=== PATIENT | female | born 1950 | race Caucasian/White ===

== ENCOUNTER 2018-10-12 05:58 | Inpatient (IN) | payer OTHER ==
[~2018-10-12] VITALS: Ht 167.6 cm; Wt 116.0 kg
[~2018-10-12 05:58] MED LIST: ALLO100 PO; ALLO300 PO; AMIO200 PO; ANTI ANXIETY MED; ARTIFICIAL TEAR15 ML RIGHTEYE; ATEN50; Augmentin 875-1 EACH PO; BISO5 PO; CLON.5; ELIQUIS5 MG PO; ERGO50000 PO; FENO54 PO; FLEC50 PO; FURO40; FURO40 PO; GABA600 PO; GABA800 PO; HYDACE5 PO; Keflex500 MG PO; LEVO750 PO; LEVSOD100 PO; LEVSOD125; LEVSOD25; LISI5 PO; LOSHYD; Lacri-Lube S.O3.5 GM RIGHTEYE; MAGOXI400 PO; META800 PO; METF500 PO; NAPR550 PO; NITR.4SL SL; POTA10T; Prednisone50 MG PO; SPIR50 PO; SPIRONOLACTONE; TRAM50 PO; TRIAOI; VALACYCLOVIR1000 MG PO; WARF4 PO; WARF5 PO; WARF7.5 PO; lisinopril
[2018-10-12 06:32] LABS: BASOPHILS ABSOLUTE AUTO 0.05 K/mm3 (0.00-0.23); BASOPHILS PERCENT AUTO 1 % (0-2); EOSINOPHILS ABSOLUTE AUTO 0.04 K/mm3 (0.00-0.68); EOSINOPHILS PERCENT AUTO 1 % (0-6); Hematocrit 40.5 % (33.0-51.0); Hemoglobin 14.4 g/dL (11.5-16.0); IMMATURE GRAN ABSOLUTE AUTO 0.03 K/mm3 (0.00-0.10); IMMATURE GRAN PERCENT AUTO 1 % (0-1); LYMPHOCYTES ABSOLUTE AUTO 1.06 K/mm3 (0.84-5.20); LYMPHOCYTES PERCENT AUTO 16 % (21-46); MONOCYTES ABSOLUTE AUTO 0.56 K/mm3 (0.16-1.47); MONOCYTES PERCENT AUTO 9 % (4-13); Mean Corpuscular HGB 33.6 pg (26.0-34.0); Mean Corpuscular HGB Conc 35.6 g/dL (31.5-36.5); Mean Corpuscular Volume 94 fL (80-100); Mean Platelet Volume 12.4 fL (9.1-12.4); NEUTROPHILS ABSOLUTE AUTO 4.71 K/mm3 (1.96-9.15); NEUTROPHILS PERCENT AUTO 73 % (41-73); Platelet Count 120 K/mm3 (150-400); RDW Coefficient Variation 11.9 % (11.7-14.2); RDW Standard Deviation 41.6 fL (35.1-46.3); Red Blood Cell Count 4.29 M/mm3 (3.80-5.20); White Blood Cell Count 6.45 K/mm3 (4.00-11.30)
[2018-10-12 06:46] LABS: Alanine Aminotransfer (ALT/SGP 37 U/L (12-78); Albumin/Globulin Ratio 1.2 (0.8-1.8); Alk Phos 83 U/L (50-136); Anion Gap 12 mmol/L (6-16); Aspartate Aminotrans (AST/SGOT 26 U/L (12-37); Bilirubin, Total 0.7 mg/dL (0.1-1.0); Blood Urea Nitrogen 10 mg/dL (8-24); Bun/Creatinine Ratio 14.2 (12.0-20.0); CO2, Blood 21 mmol/L (21-32); Chloride, Blood 104 mmol/L (98-108); Globulin, Blood 3.3 g/dL (2.2-4.0); Glomerular Filtration Rate >60 (60-); Glucose, Blood 235 mg/dL (70-99); Potassium, Blood 3.7 mmol/L (3.5-5.5); Sodium, Blood 137 mmol/L (136-145); Total Protein, Blood 7.3 g/dL (6.4-8.2); Troponin I <0.015 ng/mL (0.000-0.040)
[2018-10-12 06:53] LABS: Influenza A Positive (NEGATIVE); Influenza B Negative (NEGATIVE)
[2018-10-12] MEDS ORDERED: Bisoprolol Fumar5 MG PO (11:05)
--- NOTE | 2018-10-12 18:22 | NUR ---
SHIFT SUMMARY 1019 PT RECEIVED FROM ER. ORIENTED TO ROOM, MONITOR ON, HEART RHYTHM SHOWING AFIB RATE 120s-150s. ON CARDIZEM GTT AT 20 MG/HR. AT 1040 PT NOTED TO BE IN NSR RATE 70s, CARDIZEM GTT TITRATED TO OFF OVER A COUPLE HOURS. HEART RATE REMAINS IN THE 60s-70s NSR. PT STATES SHE FEELS BETTER AFTER CONVERSION. PT ALERT AND ORIENTED X3. C/O 11/21 HEADACHE, MEDICATED WITH PRN TYLENOL. LUNG SOUNDS CLEAR, DIMINISHED BASES. AMBULATING WITH STANDBY ASSIST TO TOILET WITH NO PROBLEMS. WILL CONTINUE TO MONITOR.
[2018-10-13 04:10] LABS: Hematocrit 38.3 % (33.0-51.0); Hemoglobin 13.2 g/dL (11.5-16.0); Mean Corpuscular HGB 33.3 pg (26.0-34.0); Mean Corpuscular HGB Conc 34.5 g/dL (31.5-36.5); Mean Platelet Volume 12.6 fL (9.1-12.4); Platelet Count 107 K/mm3 (150-400); RDW Coefficient Variation 12.1 % (11.7-14.2); RDW Standard Deviation 43.5 fL (35.1-46.3); Red Blood Cell Count 3.96 M/mm3 (3.80-5.20); White Blood Cell Count 3.85 K/mm3 (4.00-11.30)
[2018-10-13 04:20] LABS: Mean Corpuscular Volume 97 fL (80-100)
[2018-10-13 04:38] LABS: Anion Gap 7 mmol/L (6-16); Blood Urea Nitrogen 12 mg/dL (8-24); Bun/Creatinine Ratio 14.8 (12.0-20.0); CO2, Blood 26 mmol/L (21-32); Calcium, Blood 8.3 mg/dL (8.5-10.1); Chloride, Blood 106 mmol/L (98-108); Creatinine, Blood 0.81 mg/dL (0.40-1.00); Glomerular Filtration Rate >60 (60-); Glucose, Blood 175 mg/dL (70-99); Potassium, Blood 3.4 mmol/L (3.5-5.5); Sodium, Blood 139 mmol/L (136-145)
--- NOTE | 2018-10-13 07:34 | NUR ---
[id number]: MONITOR SR-SP. VSS. OOB W/ STANDBY ASSISST, NO DIZZINESS, GAIT STEADY. TYLENOL 650MG GIVEN FOR C/O HEADACHE, SUBTOTAL RELIEF. INTERMITTENT COUGH W/OUT PRODUCTION, INITIALLY DENIES DISCOMFORT, THEN C/O DEEP CHEST ACHING. TESSILON 200 MG GIVEN, COUGH SUPPRESSED SUBTOTAL. USING HOME CPAP INDEPENDENTLY W/ASLEEP. QT/QTc MORE PROLONGED IN AM, REPORTED TO DR CENTENO, 12 LEAD EKG OBTAINED.
--- NOTE | 2018-10-13 08:00 | NUR ---
pt laying in bed awake a/ox3, pleasant and cooperative with care, verbalizes a lot of stress at home, speaking about marital problems, follows commands well, denies pain, lungs are clear in upper feilds, course in bases, resp even and unlabored, has harsh cough, uses cpap when sleeping, takes po meds without diff, hrr, monitor in place running sr per monitor, see strip, no edema noted, ppp+2, cap refill <3sec, vs stable, afebrile, iv sites are clear and patent, btx4, abd flat soft nontender, voids without diff, skin c/w/d, maew, lynsey, call light in reach.
[2018-10-13 09:52] LABS: BASOPHILS PERCENT MAN 0 % (0-2); EOSINOPHILS PERCENT MAN 0 % (0-6); LYMPHOCYTES ABSOLUTE MAN 1.61 K/mm3 (0.84-5.20); LYMPHOCYTES PERCENT MAN 42 % (21-46); MONOCYTES ABSOLUTE MAN 0.11 K/mm3 (0.16-1.47); MONOCYTES PERCENT MAN 3 % (4-13); NEUTROPHILS ABSOLUTE MAN 2.11 K/mm3 (1.96-9.15); SEG NEUTROPHILS PERCENT MAN 55 % (41-73); TOTAL CELLS COUNTED 100
[2018-10-13] MEDS ORDERED: METO25 PO (12:43)
[2018-10-13] MEDS ORDERED: Tessalon200 MG PO (12:44)
[2018-10-13] MEDS ORDERED: OSEL75CA PO (12:44)
[2018-10-13] MEDS ORDERED: METF500C PO (12:45)
--- NOTE | 2018-10-13 13:09 | NUR ---
PT HAS BEEN DISCHARGED TO HOME, WILL FOLLOW UP WITH HER SALES OPERATIONS DIRECTOR IN [place], SHE VERBALIZES UNDERSTANDING OF HER INSTRUCIONTS, IV'S X2 REMOVED INTACT, NEW MEDICATIONS CALLED INTO [facility] PER HER INSTRUCTIONS. SHE IS GETTING HERSELF DRESSED AND WILL CALL WHEN READY TO LEAVE.
== END 2018-10-13 13:40 | disposition home or self-care (01) | DRG 309 ==
LOC: ER 05:58 → ICUE 07:47 → ICUW 07:47 → ICUE 09:48
PROVIDERS: Emergency Medicine; ADMIT Student in an Organized Health Care Education/Training Program
DX: I48.91 Unspecified atrial fibrillation (principal); N18.4 Chronic kidney disease, stage 4 (severe); Z68.41 Body mass index [BMI] 40.0-44.9, adult; E11.22 Type 2 diabetes mellitus with diabetic chronic kidney disease; I12.9 Hypertensive chronic kidney disease with stage 1 through stage 4 chronic kidney disease, or unspecified chronic kidney disease; J11.1 Influenza due to unidentified influenza virus with other respiratory manifestations; E78.5 Hyperlipidemia, unspecified; G47.33 Obstructive sleep apnea (adult) (pediatric); E03.9 Hypothyroidism, unspecified; E11.40 Type 2 diabetes mellitus with diabetic neuropathy, unspecified; M10.9 Gout, unspecified; E66.9 Obesity, unspecified; Z88.8 Allergy status to other drugs, medicaments and biological substances; Z79.899 Other long term (current) drug therapy; I25.2 Old myocardial infarction; Z87.891 Personal history of nicotine dependence
CPT/HCPCS: 36415; 71046; 80048; 80053; 82947; 83690; 83735; 84484; 85025; 87804; 93005; 93010; 93308; 93321; 96361; 96365; 96366; 96376; 99285-25; J0153; J0282; J1815; J7030; J7060

== ENCOUNTER 2018-10-14 13:01 | Observation (INO) | payer OTHER ==
[~2018-10-14] VITALS: Ht 167.6 cm; Wt 118.8 kg
[~2018-10-14 13:01] MED LIST changes: +Bisoprolol Fumar5 MG PO; +METF500C PO; +METO25 PO; +OSEL75CA PO; +Tessalon200 MG PO
[2018-10-14 13:58] LABS: BASOPHILS ABSOLUTE AUTO 0.04 K/mm3 (0.00-0.23); BASOPHILS PERCENT AUTO 1 % (0-2); EOSINOPHILS ABSOLUTE AUTO 0.07 K/mm3 (0.00-0.68); EOSINOPHILS PERCENT AUTO 2 % (0-6); Hematocrit 42.4 % (33.0-51.0); Hemoglobin 15.2 g/dL (11.5-16.0); IMMATURE GRAN ABSOLUTE AUTO 0.04 K/mm3 (0.00-0.10); IMMATURE GRAN PERCENT AUTO 1 % (0-1); LYMPHOCYTES ABSOLUTE AUTO 1.41 K/mm3 (0.84-5.20); LYMPHOCYTES PERCENT AUTO 39 % (21-46); MONOCYTES ABSOLUTE AUTO 0.34 K/mm3 (0.16-1.47); MONOCYTES PERCENT AUTO 10 % (4-13); Mean Corpuscular HGB 33.9 pg (26.0-34.0); Mean Corpuscular HGB Conc 35.8 g/dL (31.5-36.5); Mean Corpuscular Volume 95 fL (80-100); Mean Platelet Volume 12.7 fL (9.1-12.4); NEUTROPHILS ABSOLUTE AUTO 1.68 K/mm3 (1.96-9.15); NEUTROPHILS PERCENT AUTO 47 % (41-73); Platelet Count 115 K/mm3 (150-400); RDW Coefficient Variation 12.1 % (11.7-14.2); Red Blood Cell Count 4.48 M/mm3 (3.80-5.20); White Blood Cell Count 3.58 K/mm3 (4.00-11.30)
[2018-10-14 14:20] LABS: Alanine Aminotransfer (ALT/SGP 31 U/L (12-78); Albumin, Blood 3.7 g/dL (3.4-5.0); Alk Phos 75 U/L (50-136); Anion Gap 11 mmol/L (6-16); Aspartate Aminotrans (AST/SGOT 31 U/L (12-37); Bilirubin, Total 0.5 mg/dL (0.1-1.0); Blood Urea Nitrogen 12 mg/dL (8-24); Bun/Creatinine Ratio 16.6 (12.0-20.0); CO2, Blood 22 mmol/L (21-32); Calcium, Blood 8.7 mg/dL (8.5-10.1); Chloride, Blood 109 mmol/L (98-108); Creatinine, Blood 0.72 mg/dL (0.40-1.00); Globulin, Blood 3.6 g/dL (2.2-4.0); Glomerular Filtration Rate >60 (60-); Glucose, Blood 222 mg/dL (70-99); Potassium, Blood 3.7 mmol/L (3.5-5.5); Sodium, Blood 142 mmol/L (136-145); Total Protein, Blood 7.3 g/dL (6.4-8.2); Troponin I <0.015 ng/mL (0.000-0.040)
--- NOTE | 2018-10-14 20:30 | NUR ---
PM NOTE. ASSUMED CARE OF PT APROX 1900. PT IS A&Ox4. PT WAS ADMITTED DUE TO AFIB RVR, PT WAS RECENTLY D/C'D FOR THIS SAME ISSUE. TELE INTACT, AFIB W/RVR 130'S-140'S PER [facility]. BP 144/90. NO EDEMA NOTED ON ASSESSMENT. PT IS ON A CARDIZEM GTT THAT WAS TITRATED UP TO 10MG AT THIS TIME. L/C CLEAR T/O. BT PRESENT AND HYPERACTIVE, COLOSTOMY BAG INTACT, BROWN RICKIE-FORMED STOOL SEEN IN BAG. PT DENIES ANY CHEST PAIN/PRESSURE, N/V OR SOB. CALL LIGHT IN REACH, BED IS LOCKED AND LOW WILL CONTINUE TO MONITOR.
--- NOTE | 2018-10-14 21:15 | NUR ---
PT UPDATE... CARDIZEM GTT HAS BEEN TITRATED UP TO 15. PT'S HR STILL AFIB 140'S-150'S. PT'S BP 150/106. PROVIDER CALLED, ORDERS OBTAINED TO WAIT APROX 1 HOUR AND CALL TO UPDATE.
--- NOTE | 2018-10-14 23:57 | NUR ---
PT UPDATE... AT 2315 PT CONVERTED FROM AFIB RVR AT 120'S-130'S TO NSR IN THE 60'S AFTER 5MG METOPROLOL IV PUSH. CARDIZEM GTT WAS D/C'D AT THIS TIME. CALL LIGHT IN REACH, WILL CONTINUE TO MONITOR.
[2018-10-15 04:14] LABS: Hematocrit 43.3 % (33.0-51.0); Hemoglobin 14.8 g/dL (11.5-16.0); Mean Corpuscular HGB 32.8 pg (26.0-34.0); Mean Corpuscular HGB Conc 34.2 g/dL (31.5-36.5); Mean Corpuscular Volume 96 fL (80-100); Mean Platelet Volume 12.5 fL (9.1-12.4); Platelet Count 118 K/mm3 (150-400); RDW Coefficient Variation 12.2 % (11.7-14.2); RDW Standard Deviation 43.8 fL (35.1-46.3); Red Blood Cell Count 4.51 M/mm3 (3.80-5.20); White Blood Cell Count 4.11 K/mm3 (4.00-11.30)
[2018-10-15 04:22] LABS: Anion Gap 9 mmol/L (6-16); Blood Urea Nitrogen 18 mg/dL (8-24); Bun/Creatinine Ratio 21.6 (12.0-20.0); CO2, Blood 24 mmol/L (21-32); Calcium, Blood 8.6 mg/dL (8.5-10.1); Chloride, Blood 107 mmol/L (98-108); Creatinine, Blood 0.83 mg/dL (0.40-1.00); Glomerular Filtration Rate >60 (60-); Glucose, Blood 203 mg/dL (70-99); Sodium, Blood 140 mmol/L (136-145)
--- NOTE | 2018-10-15 05:27 | NUR ---
SHIFT SUMMARY. PT IS STILL IN NSR/SB WITH RATES IN THE 50'S-60'S PER TELE. PT DENIES ANY CHEST PAIN/PRESSURE BUT STATES SHE COULD TELL WHEN SHE CONVERTED. PT'S VS HAVE BEEN STABLE T/O SHFIT. PT DENIES ANY SOB OR N/V. PT STATED SHE WAS VERY CONCERNED ABOUT THE CURRENT STRESS IN HER HOME LIFE AND FEELS THAT IT HAS CONTRIBUTED TO HER CURRENT CARDIAC ISSUES. THERAPUTIC COMMUNICATION WAS USED TO HELP PT RELAX AND EMOTIONAL SUPPORT WAS PROVIDED. PT STATED THAT SHE HAS AN APPOINTMENT WITH HER CLINICAL INFORMATICS SPECIALIST IN [place] AT 1300 TODAY AND WOULD LIKE TO BE D/C'D IN TIME TO MAKE IT UP THERE. THIS INFORMATION WAS PASSED ON TO THE CHARGE NURSE AND WILL BE PASSED ON IN REPORT TO DAYSHIFT RN. CALL LIGHT IN REACH, BED IS LOCKED AND LOW WILL CONTINUE TO MONITOR UNTIL REPORT IS GIVEN TO ONCOMING RN.
[2018-10-15] MEDS ORDERED: ACET500 PO (10:09)
[2018-10-15] MEDS ORDERED: ELIQUIS5 MG PO (10:11)
[2018-10-15] MEDS ORDERED: METO25ER PO (10:12)
== END 2018-10-15 10:49 | disposition home or self-care (01) ==
LOC: ER 13:01 → PCU 13:02 → ER 17:39 → PCU 17:39
PROVIDERS: Emergency Medicine; Internal Medicine; ADMIT Student in an Organized Health Care Education/Training Program
DX: I48.0 Paroxysmal atrial fibrillation (principal); J10.1 Influenza due to other identified influenza virus with other respiratory manifestations; I12.9 Hypertensive chronic kidney disease with stage 1 through stage 4 chronic kidney disease, or unspecified chronic kidney disease; E11.22 Type 2 diabetes mellitus with diabetic chronic kidney disease; N18.2 Chronic kidney disease, stage 2 (mild); G47.33 Obstructive sleep apnea (adult) (pediatric); E66.01 Morbid (severe) obesity due to excess calories; E11.40 Type 2 diabetes mellitus with diabetic neuropathy, unspecified; E03.9 Hypothyroidism, unspecified; M10.9 Gout, unspecified; Z86.711 Personal history of pulmonary embolism; Z79.01 Long term (current) use of anticoagulants; Z87.891 Personal history of nicotine dependence; Z88.5 Allergy status to narcotic agent; Z88.8 Allergy status to other drugs, medicaments and biological substances; Z88.1 Allergy status to other antibiotic agents; Z79.899 Other long term (current) drug therapy; Z79.84 Long term (current) use of oral hypoglycemic drugs; Z99.89 Dependence on other enabling machines and devices; Z68.41 Body mass index [BMI] 40.0-44.9, adult; Z64.4 Discord with counselors
CPT/HCPCS: 36415; 71046; 80048; 80053; 82947; 83735; 84484; 85025; 85027; 93005; 93010; 94762; 96361; 96365; 96375; 96376; 99285-25; G0378; J3475; J7030

== ENCOUNTER → 2021-07-12 | Outpatient (CLI) | payer OTHER ==
[~2021-07-12] MED LIST changes: +ACET500 PO; +METO25ER PO
[2021-07-13 17:11] LABS: CORONAVIRUS (COVID19) CSH-NRL Negative (Negative)
== END ==
LOC: LAB SHORT 12:19 → LAB 12:19
PROVIDERS: Family Medicine
DX: Z20.822 Contact with and (suspected) exposure to COVID-19 (principal); Z88.5 Allergy status to narcotic agent; Z88.1 Allergy status to other antibiotic agents; Z88.8 Allergy status to other drugs, medicaments and biological substances
CPT/HCPCS: U0003

== ENCOUNTER → 2022-03-11 | Outpatient (CLI) | payer OTHER ==
[~2022-03-11] MED LIST changes: +CEPH500 PO
[2022-03-11 13:02] LABS: Percent Saturation 33.2 % (15.0-50.0)
== END | disposition home or self-care (01) ==
LOC: LAB SHORT 12:38
PROVIDERS: Internal Medicine Hematology & Oncology
DX: E83.110 Hereditary hemochromatosis (principal)
CPT/HCPCS: 82728; 83540; 83550

== ENCOUNTER → 2023-04-10 | Outpatient (CLI) | payer OTHER ==
[2023-04-10 17:48] LABS: Albumin, Blood 4.2 g/dL (3.4-5.0); Albumin/Globulin Ratio 1.4 (0.8-1.8); Bilirubin, Total 0.5 mg/dL (0.1-1.0); Bun/Creatinine Ratio 18.8 (12.0-20.0); Calcium, Blood 9.3 mg/dL (8.5-10.1); Creatinine, Blood 0.69 mg/dL (0.40-1.00); Potassium, Blood 4.2 mmol/L (3.5-5.5); Total Protein, Blood 7.2 g/dL (6.4-8.2)
== END | disposition home or self-care (01) ==
LOC: LAB SHORT 14:14 → LAB 14:14
PROVIDERS: Family Medicine
DX: E11.22 Type 2 diabetes mellitus with diabetic chronic kidney disease (principal); E11.42 Type 2 diabetes mellitus with diabetic polyneuropathy; E11.59 Type 2 diabetes mellitus with other circulatory complications; E11.29 Type 2 diabetes mellitus with other diabetic kidney complication; E11.69 Type 2 diabetes mellitus with other specified complication; E83.110 Hereditary hemochromatosis
CPT/HCPCS: 80053; 82728; 83036

== ENCOUNTER 2023-07-07 15:17 | Observation (INO) | payer OTHER ==
[~2023-07-07] VITALS: Ht 167.6 cm; Wt 104.5 kg
[2023-07-07] MEDS ORDERED: TRULICITY3 MG/0.5 M SQ (16:34)
[2023-07-07 16:51] LABS: BASOPHILS ABSOLUTE AUTO 0.04 K/mm3 (0.00-0.23); BASOPHILS PERCENT AUTO 0 % (0-2); EOSINOPHILS ABSOLUTE AUTO 0.02 K/mm3 (0.00-0.68); EOSINOPHILS PERCENT AUTO 0 % (0-6); Hematocrit 44.5 % (33.0-51.0); IMMATURE GRAN ABSOLUTE AUTO 0.06 K/mm3 (0.00-0.10); IMMATURE GRAN PERCENT AUTO 1 % (0-1); LYMPHOCYTES ABSOLUTE AUTO 1.14 K/mm3 (0.84-5.20); LYMPHOCYTES PERCENT AUTO 12 % (21-46); MONOCYTES ABSOLUTE AUTO 0.53 K/mm3 (0.16-1.47); MONOCYTES PERCENT AUTO 6 % (4-13); Mean Corpuscular HGB 33.5 pg (26.0-34.0); Mean Corpuscular Volume 93 fL (80-100); Mean Platelet Volume 11.8 fL (9.1-12.4); NEUTROPHILS ABSOLUTE AUTO 7.88 K/mm3 (1.96-9.15); NEUTROPHILS PERCENT AUTO 82 % (41-73); Platelet Count 169 K/mm3 (150-400); RDW Coefficient Variation 12.1 % (11.7-14.2); RDW Standard Deviation 41.6 fL (35.1-46.3); Red Blood Cell Count 4.78 M/mm3 (3.80-5.20); White Blood Cell Count 9.67 K/mm3 (4.00-11.30)
[2023-07-07 17:02] LABS: Source, Urine Clean Catch
[2023-07-07 17:04] LABS: Appearance, Urine Clear (Clear); Bilirubin, Urine Neg (Neg); Blood, Urine Neg (Neg); Color, Urine Yellow (P-Yellow); Glucose Qualitative, Urine 4+ (Neg); Ketones, Urine 3+ (Neg); Leukocyte Esterase, Urine Neg (Neg); Nitrite, Urine Neg (Neg); Protein, Urine 3+ (Neg); Urobilinogen, Urine NORM (Normal)
[2023-07-07 17:23] LABS: Bacteria Few /hpf; Red Blood Cells, Urine 0-2 /hpf (0-2); Squamous Epithelial Cells Few /hpf (Few); White Blood Cells, Urine 0-2 /hpf (0-5)
[2023-07-07 17:29] LABS: Albumin, Blood 3.7 g/dL (3.4-5.0); Albumin/Globulin Ratio 1.2 (0.8-1.8); Bilirubin, Total 0.7 mg/dL (0.1-1.0); Bun/Creatinine Ratio 18.9 (12.0-20.0); Calcium, Blood 9.2 mg/dL (8.5-10.1); Creatinine, Blood 0.74 mg/dL (0.40-1.00); Globulin, Blood 3.2 g/dL (2.2-4.0); Potassium, Blood 4.1 mmol/L (3.5-5.5); Total Protein, Blood 6.9 g/dL (6.4-8.2)
[2023-07-07 19:08] LABS: Magnesium, Blood 1.8 mg/dL (1.6-2.4)
[2023-07-07 19:09] LABS: Thyroid Stimulating Hormone 2.1 uIU/mL (0.360-4.800)
[2023-07-07 23:22] VITALS: BP 119/72
[2023-07-08] VITALS (26 sets, daily range): BP systolic 90–162; BP diastolic 56–138
[2023-07-08] MEDS ORDERED: MIRALAX17 GM PO (00:05)
--- NOTE | 2023-07-08 05:30 | NUR ---
SHIFT SUMMARY PATIENT ARRIVED TO PCU 02 VIA STRETCHER AT 2314. PATIENT ALERT AND ORIENTED X4, STEADY ON FEET, AND WAS ABLE TO SELF TRANSFER TO THE BED. PATIENT ARRIVED ON IV CARDIZEM DRIP RUNNING AT 20, IT IS CURRENTLY TURNED OFF HER HEART RATE WAS IN THE 70'S. PATIENT'S HEART RATE BECOMES TACHYCARDIC 120'S-130'S WITH MINIMAL ACTIVITY, PATIENT DENIES CHEST PAIN AND SHORTNESS OF BREATH. SPO2 >90% ON ROOM AIR. BLOOD PRESSURE STABLE. WILL CONTINUE TO MONITOR. CALL LIGHT WITHIN REACH.
[2023-07-08 08:34] LABS: BASOPHILS ABSOLUTE AUTO 0.05 K/mm3 (0.00-0.23); BASOPHILS PERCENT AUTO 1 % (0-2); EOSINOPHILS PERCENT AUTO 1 % (0-6); Hematocrit 43.4 % (33.0-51.0); Hemoglobin 15.6 g/dL (11.5-16.0); IMMATURE GRAN ABSOLUTE AUTO 0.05 K/mm3 (0.00-0.10); IMMATURE GRAN PERCENT AUTO 1 % (0-1); LYMPHOCYTES ABSOLUTE AUTO 2.93 K/mm3 (0.84-5.20); LYMPHOCYTES PERCENT AUTO 37 % (21-46); MONOCYTES ABSOLUTE AUTO 0.57 K/mm3 (0.16-1.47); MONOCYTES PERCENT AUTO 7 % (4-13); Mean Corpuscular HGB 33.7 pg (26.0-34.0); Mean Corpuscular HGB Conc 35.9 g/dL (31.5-36.5); Mean Corpuscular Volume 94 fL (80-100); Mean Platelet Volume 11.4 fL (9.1-12.4); NEUTROPHILS ABSOLUTE AUTO 4.33 K/mm3 (1.96-9.15); NEUTROPHILS PERCENT AUTO 54 % (41-73); Platelet Count 171 K/mm3 (150-400); RDW Coefficient Variation 12.5 % (11.7-14.2); RDW Standard Deviation 42.9 fL (35.1-46.3); Red Blood Cell Count 4.63 M/mm3 (3.80-5.20); White Blood Cell Count 8.03 K/mm3 (4.00-11.30)
[2023-07-08 08:52] LABS: Bun/Creatinine Ratio 16.1 (12.0-20.0); Calcium, Blood 9.1 mg/dL (8.5-10.1); Creatinine, Blood 0.81 mg/dL (0.40-1.00); Potassium, Blood 3.5 mmol/L (3.5-5.5)
--- NOTE | 2023-07-08 16:54 | NUR ---
PT. ALERT AND ORIENTED, VSS AT THIS TIME. CARDIOVERSION COMPLETED. DR. NINO AT BEDSIDE FOR PROCEDURE AND RECOVERY OF PATIENT. ONE SHOCK DELVIERED WITH 200J BY DR. HERRON, PT NOW IN NSR. POST EKG DONE. ECHO TO BE DONE PRIOR TO DEPARTURE BACK TO PCU ROOM. PT VSS.
--- NOTE | 2023-07-08 17:57 | NUR ---
SHIFT SUMMARY PT IS A&OX4, SBA IN THE ROOM, AND CALLS APPROPRIATELY. THE PT WAS AFLUTTER 100'S-130'S MOST OF THE DAY WHILE ON A DILTIZEM GTT AT 5. DR. CINTRON WAS CONSULTED AND CARDIOVERTED THE PT IN THE HEART CENTER THIS LATE AFTERNOON. THE PT IS NOW SR 60'S-70'S. WE ARE PLANNING ON D/C'ING HER TONIGHT. SHE NEEDS TO BE OBSERVED ONE HOUR POST-OP AND CAN ONLY HAVE THIN LIQUIDS FOR THE FIRST HOUR. PT DENIES ANY ANGINA OR CHEST PRESSURE. HER PARTNER IDA WAS IN THE ROOM AND UPDATED ON CARE. FIRE IGNITION RISK WAS EVALUATED.
--- NOTE | 2023-07-08 18:57 | NUR ---
I WENT OVER D/C PACKET WITH THE PT AND ANSWERD ALL QUESTIONS. IV D/C'D
== END 2023-07-08 19:28 | disposition home or self-care (01) ==
LOC: ER 15:17 → PCU 15:18
PROVIDERS: Family Medicine; Student in an Organized Health Care Education/Training Program; ADMIT Student in an Organized Health Care Education/Training Program
DX: I48.0 Paroxysmal atrial fibrillation (principal); I25.10 Atherosclerotic heart disease of native coronary artery without angina pectoris; E11.9 Type 2 diabetes mellitus without complications; D68.51 Activated protein C resistance; I10 Essential (primary) hypertension; G47.33 Obstructive sleep apnea (adult) (pediatric); E03.9 Hypothyroidism, unspecified
CPT/HCPCS: 36415; 71045; 71260; 74018; 80048; 80053; 81001; 82947; 83735; 83880; 84443; 84484; 85025; 85379; 92960; 93005; 93010; 93306; 96361; 96365-59; 96366; 96376-59; 99285-25; A9270; G0378; J2704; J7030; Q9967

== ENCOUNTER 2023-08-11 18:38 | Observation (INO) | payer OTHER ==
[~2023-08-11] VITALS: Ht 167.6 cm; Wt 111.6 kg
[~2023-08-11 18:38] MED LIST changes: +MIRALAX17 GM PO; +TRULICITY3 MG/0.5 M SQ
[2023-08-11 19:13] LABS: BASOPHILS ABSOLUTE AUTO 0.07 K/mm3 (0.00-0.23); BASOPHILS PERCENT AUTO 1 % (0-2); EOSINOPHILS ABSOLUTE AUTO 0.12 K/mm3 (0.00-0.68); EOSINOPHILS PERCENT AUTO 2 % (0-6); Hematocrit 43.7 % (33.0-51.0); Hemoglobin 15.6 g/dL (11.5-16.0); IMMATURE GRAN ABSOLUTE AUTO 0.06 K/mm3 (0.00-0.10); IMMATURE GRAN PERCENT AUTO 1 % (0-1); LYMPHOCYTES ABSOLUTE AUTO 2.48 K/mm3 (0.84-5.20); LYMPHOCYTES PERCENT AUTO 36 % (21-46); MONOCYTES ABSOLUTE AUTO 0.61 K/mm3 (0.16-1.47); MONOCYTES PERCENT AUTO 9 % (4-13); Mean Corpuscular HGB 33.3 pg (26.0-34.0); Mean Corpuscular HGB Conc 35.7 g/dL (31.5-36.5); Mean Corpuscular Volume 93 fL (80-100); Mean Platelet Volume 11.7 fL (9.1-12.4); NEUTROPHILS ABSOLUTE AUTO 3.53 K/mm3 (1.96-9.15); NEUTROPHILS PERCENT AUTO 51 % (41-73); Platelet Count 173 K/mm3 (150-400); RDW Coefficient Variation 12.3 % (11.7-14.2); RDW Standard Deviation 42.5 fL (35.1-46.3); Red Blood Cell Count 4.68 M/mm3 (3.80-5.20); White Blood Cell Count 6.87 K/mm3 (4.00-11.30)
[2023-08-11 19:32] LABS: Albumin/Globulin Ratio 1.2 (0.8-1.8); Bilirubin, Total 0.4 mg/dL (0.1-1.0); Bun/Creatinine Ratio 23.3 (12.0-20.0); Calcium, Blood 9.5 mg/dL (8.5-10.1); Creatinine, Blood 0.6 mg/dL (0.40-1.00); Globulin, Blood 3.3 g/dL (2.2-4.0); Potassium, Blood 4.1 mmol/L (3.5-5.5); Total Protein, Blood 7.3 g/dL (6.4-8.2)
[2023-08-11 20:23] LABS: Thyroid Stimulating Hormone 5.22 uIU/mL (0.360-4.800)
[2023-08-11 23:00] VITALS: BP 105/94
[2023-08-11 23:15] VITALS: BP 118/80
[2023-08-12] VITALS (7 sets, daily range): BP systolic 105–144; BP diastolic 69–96
[2023-08-12 04:52] LABS: Bun/Creatinine Ratio 22.5 (12.0-20.0); Calcium, Blood 9.2 mg/dL (8.5-10.1); Creatinine, Blood 0.67 mg/dL (0.40-1.00); Potassium, Blood 4.1 mmol/L (3.5-5.5)
--- NOTE | 2023-08-12 06:05 | NUR ---
NOC SHIFT SUMMARY PT ADMITTED TO PCU 05 FROM ER AT 2240 LAST NIGHT. PT AMBULATED TO BED FROM STRETCHER. SLIGHTLY UNSTEADY WITH WEAKNESS TO BILATERAL LE. PT USES WALKER AT HOME. WALKER PROVIDED FOR AMBULATION. ORIENTED X4, TALKATIVE. AFIB ON TELEMETRY IN 130S. DENIES PAIN OR DISCOMFORT. CARDIZEM GTT TITRATED DOWN TO 5MG/HR AFTER ARRIVING DUE TO DOWNTREND IN HR TO 90S. PT CONVERTED TO SR SHORTLY AFTER MIDNIGHT AND CARDIZEM GTT TURNED OFF HR WAS IN THE 60S. COLOSTOMY TO LUQ, UNABLE TO VISUALIZE STOMA. SMALL PASTY BROWN OUTPUT. URINE OUTPUT WNL. 1+ EDEMA TO BILATERAL ANKLES. LUNGS CLEAR TO ALL BASES. HAS REMAINED NPO AFTER 0000 FOR POSSIBLE CARDIOVERSION TODAY. WILL PASS ON TO DAY RN
--- NOTE | 2023-08-12 08:43 | NUR ---
NURSING PCU DAYSHIFT: Assumed care of pt at approx 0700. A/O, very pleasant, cooperative w/care. Mild general weakness, ambulates w/SBA. Denies any pain/discomfort at rest. Skin intact w/no breakdown noted. Tele in place, NSR, no c/o CP/pressure, SBP 109 prior to a.m. meds, trace BLE edema. L/S cta t/o, O2 sat upper 90's on RA, denies dyspnea, no noted cough. Abd mildly distended which pt states is normal, chronic ostomy to L abd, voiding w/o difficulty. PIV x1, s/l. No s/s of acute distress this a.m. Awaiting rounding from PMD to discuss plan of care. Pt anticipating discharge home today. Pt denies any current needs or questions, currently sitting on edge of bed, cont to monitor for any changes.
--- NOTE | 2023-08-12 17:03 | NUR ---
NURSING PCU DAYSHIFT SUMMARY: No significant changes noted t/o the shift. Pt has remained NSR w/no c/o CP/pressure/palpitations. Seen by PMD, new d/o received. After discussing plan of care, pt agreeable to transition to PO diltiazem and remain in hospital overnight for cardiac monitoring. Changed to medical status w/tele. Will provide telephone report to accepting RN and transfer pt via w/c. No s/s of acute distress at this time, cont to monitor until rpt is given to NOC RN.
--- NOTE | 2023-08-13 03:59 | NUR ---
SHIFT SUMMARY PATIENT HAD NO ACUTE CHANGES. AXOX 4 AND INDEPENDENT IN ROOM. DENIES CHEST, PAIN, SOB, AND N/V. CBG 260 TELE MONITOR NSR 71. COLOSTOMY SELF CARE LLQ. REPORTS HAVING A CT OF ABDOMEN OUT PATIENT TODAY 08/13/23 @ 11:00. VSS/AFEBRILE. CALL LIGHT IN REACH. BED IN LOWEST POSITION. WILL CONTINUE TO MONITOR UNTIL DAY SHIFT NURSE ASSUMES CARE.
[2023-08-13 05:24] LABS: BASOPHILS ABSOLUTE AUTO 0.07 K/mm3 (0.00-0.23); BASOPHILS PERCENT AUTO 1 % (0-2); EOSINOPHILS ABSOLUTE AUTO 0.14 K/mm3 (0.00-0.68); EOSINOPHILS PERCENT AUTO 2 % (0-6); Hemoglobin 14.2 g/dL (11.5-16.0); IMMATURE GRAN ABSOLUTE AUTO 0.06 K/mm3 (0.00-0.10); IMMATURE GRAN PERCENT AUTO 1 % (0-1); LYMPHOCYTES ABSOLUTE AUTO 2.54 K/mm3 (0.84-5.20); LYMPHOCYTES PERCENT AUTO 42 % (21-46); MONOCYTES ABSOLUTE AUTO 0.56 K/mm3 (0.16-1.47); MONOCYTES PERCENT AUTO 9 % (4-13); Mean Corpuscular HGB 33.6 pg (26.0-34.0); Mean Corpuscular HGB Conc 35.5 g/dL (31.5-36.5); Mean Corpuscular Volume 95 fL (80-100); Mean Platelet Volume 11.6 fL (9.1-12.4); NEUTROPHILS ABSOLUTE AUTO 2.74 K/mm3 (1.96-9.15); NEUTROPHILS PERCENT AUTO 45 % (41-73); Platelet Count 152 K/mm3 (150-400); RDW Coefficient Variation 12.4 % (11.7-14.2); RDW Standard Deviation 42.9 fL (35.1-46.3); Red Blood Cell Count 4.23 M/mm3 (3.80-5.20); White Blood Cell Count 6.11 K/mm3 (4.00-11.30)
[2023-08-13 05:47] LABS: Albumin, Blood 3.5 g/dL (3.4-5.0); Albumin/Globulin Ratio 1.2 (0.8-1.8); Bilirubin, Total 0.6 mg/dL (0.1-1.0); Calcium, Blood 9.1 mg/dL (8.5-10.1); Creatinine, Blood 0.74 mg/dL (0.40-1.00); Free Thyroxine 1.05 ng/dL (0.70-1.60); Globulin, Blood 2.8 g/dL (2.2-4.0); Potassium, Blood 3.9 mmol/L (3.5-5.5); Total Protein, Blood 6.3 g/dL (6.4-8.2)
[2023-08-13 05:56] VITALS: BP 126/73
[2023-08-13 07:33] VITALS: BP 111/70
[2023-08-13 09:35] VITALS: BP 131/73
[2023-08-13] MEDS ORDERED: DILTIAZEM 24HR240 M4 PO (10:13)
--- NOTE | 2023-08-13 16:42 | NUR ---
PT DISCHARGED HOME. FAMILY AT BEDSIDE. DISCHARGE INSTRUCTIONS DISCUSSED WITH PT. NO NEW QUESTIONS AT THIS TIME. ALERT AND ORIENTED.
== END 2023-08-13 10:41 | disposition home or self-care (01) ==
LOC: ER 18:38 → PCU 18:39 → MEDS 08-12 17:45
PROVIDERS: Internal Medicine; Nurse Practitioner Acute Care; Student in an Organized Health Care Education/Training Program; ADMIT Student in an Organized Health Care Education/Training Program
DX: I48.0 Paroxysmal atrial fibrillation (principal); M10.9 Gout, unspecified; E11.9 Type 2 diabetes mellitus without complications; E03.9 Hypothyroidism, unspecified; I10 Essential (primary) hypertension; G47.33 Obstructive sleep apnea (adult) (pediatric); D68.51 Activated protein C resistance; E66.01 Morbid (severe) obesity due to excess calories; Z86.718 Personal history of other venous thrombosis and embolism; Z88.5 Allergy status to narcotic agent; Z88.1 Allergy status to other antibiotic agents; Z88.8 Allergy status to other drugs, medicaments and biological substances; Z79.01 Long term (current) use of anticoagulants; Z79.890 Hormone replacement therapy; Z79.84 Long term (current) use of oral hypoglycemic drugs; Z79.899 Other long term (current) drug therapy
CPT/HCPCS: 36415; 71046; 80048; 80053; 82947; 83735; 84439; 84443; 84484; 85025; 93005; 93010; 96365; 96366; 99285-25; A9270; G0378

== ENCOUNTER 2024-01-02 12:27 | Emergency (ER) | payer OTHER ==
[~2024-01-02] VITALS: Ht 167.6 cm; Wt 131.5 kg
[~2024-01-02 12:27] MED LIST changes: +DILTIAZEM 24HR240 M4 PO
[2024-01-02 13:06] LABS: BASOPHILS ABSOLUTE AUTO 0.05 K/mm3 (0.00-0.23); BASOPHILS PERCENT AUTO 1 % (0-2); EOSINOPHILS ABSOLUTE AUTO 0.09 K/mm3 (0.00-0.68); EOSINOPHILS PERCENT AUTO 1 % (0-6); Hemoglobin 14.7 g/dL (11.5-16.0); IMMATURE GRAN ABSOLUTE AUTO 0.09 K/mm3 (0.00-0.10); IMMATURE GRAN PERCENT AUTO 1 % (0-1); LYMPHOCYTES ABSOLUTE AUTO 1.97 K/mm3 (0.84-5.20); LYMPHOCYTES PERCENT AUTO 26 % (21-46); MONOCYTES PERCENT AUTO 8 % (4-13); Mean Corpuscular HGB 33.6 pg (26.0-34.0); Mean Corpuscular Volume 96 fL (80-100); Mean Platelet Volume 11.4 fL (9.1-12.4); NEUTROPHILS ABSOLUTE AUTO 4.67 K/mm3 (1.96-9.15); NEUTROPHILS PERCENT AUTO 63 % (41-73); Platelet Count 164 K/mm3 (150-400); RDW Standard Deviation 42.3 fL (35.1-46.3); Red Blood Cell Count 4.37 M/mm3 (3.80-5.20); White Blood Cell Count 7.47 K/mm3 (4.00-11.30)
[2024-01-02 13:24] LABS: Albumin, Blood 3.6 g/dL (3.4-5.0); Albumin/Globulin Ratio 1.1 (0.8-1.8); Bilirubin, Total 0.6 mg/dL (0.1-1.0); Bun/Creatinine Ratio 21.3 (12.0-20.0); Calcium, Blood 9.5 mg/dL (8.5-10.1); Creatinine, Blood 0.75 mg/dL (0.40-1.00); Globulin, Blood 3.2 g/dL (2.2-4.0); Total Protein, Blood 6.8 g/dL (6.4-8.2)
[2024-01-02] MEDS ORDERED: Propofol 10mg/ml 20 ml Vial (Procedural) IV SCH (13:30)
[2024-01-02 14:15] VITALS: BP 111/77
== END 2024-01-02 15:01 | disposition home or self-care (01) ==
LOC: ER 12:27
PROVIDERS: Family Medicine
DX: I48.91 Unspecified atrial fibrillation (principal); Z88.8 Allergy status to other drugs, medicaments and biological substances; Z88.5 Allergy status to narcotic agent; Z88.1 Allergy status to other antibiotic agents; Z79.899 Other long term (current) drug therapy; Z79.84 Long term (current) use of oral hypoglycemic drugs; E66.01 Morbid (severe) obesity due to excess calories; N18.9 Chronic kidney disease, unspecified; E03.9 Hypothyroidism, unspecified; I25.2 Old myocardial infarction; Z87.891 Personal history of nicotine dependence; E11.22 Type 2 diabetes mellitus with diabetic chronic kidney disease; E11.42 Type 2 diabetes mellitus with diabetic polyneuropathy
CPT/HCPCS: 71046; 80053; 84484; 85025; 92960; 93005; 93010; 99285-25; J2704

== ENCOUNTER 2024-01-23 06:25 | Emergency (ER) | payer OTHER ==
[~2024-01-23] VITALS: Ht 167.6 cm; Wt 113.4 kg
[2024-01-23 06:55] LABS: BASOPHILS ABSOLUTE AUTO 0.06 K/mm3 (0.00-0.23); BASOPHILS PERCENT AUTO 1 % (0-2); EOSINOPHILS ABSOLUTE AUTO 0.16 K/mm3 (0.00-0.68); EOSINOPHILS PERCENT AUTO 2 % (0-6); Hematocrit 41.9 % (33.0-51.0); IMMATURE GRAN ABSOLUTE AUTO 0.07 K/mm3 (0.00-0.10); IMMATURE GRAN PERCENT AUTO 1 % (0-1); LYMPHOCYTES ABSOLUTE AUTO 2.89 K/mm3 (0.84-5.20); LYMPHOCYTES PERCENT AUTO 43 % (21-46); MONOCYTES ABSOLUTE AUTO 0.55 K/mm3 (0.16-1.47); MONOCYTES PERCENT AUTO 8 % (4-13); Mean Corpuscular HGB 33.6 pg (26.0-34.0); Mean Corpuscular HGB Conc 35.8 g/dL (31.5-36.5); Mean Corpuscular Volume 94 fL (80-100); Mean Platelet Volume 11.5 fL (9.1-12.4); NEUTROPHILS ABSOLUTE AUTO 3.02 K/mm3 (1.96-9.15); NEUTROPHILS PERCENT AUTO 45 % (41-73); Platelet Count 155 K/mm3 (150-400); RDW Coefficient Variation 12.4 % (11.7-14.2); RDW Standard Deviation 42.5 fL (35.1-46.3); Red Blood Cell Count 4.47 M/mm3 (3.80-5.20); White Blood Cell Count 6.75 K/mm3 (4.00-11.30)
[2024-01-23] MEDS ORDERED: NS 1,000 ML IV SCH (06:55)
[2024-01-23 07:30] VITALS: BP 118/84
[2024-01-23] MEDS ORDERED: Magnesium Sulf 2 GM/Water 50ML 50 ML IV ONE (07:40)
[2024-01-23 08:23] LABS: Albumin, Blood 3.7 g/dL (3.4-5.0); Albumin/Globulin Ratio 1.3 (0.8-1.8); Bilirubin, Total 0.4 mg/dL (0.1-1.0); Bun/Creatinine Ratio 22.1 (12.0-20.0); Calcium, Blood 9.5 mg/dL (8.5-10.1); Creatinine, Blood 0.68 mg/dL (0.40-1.00); Globulin, Blood 2.9 g/dL (2.2-4.0); Potassium, Blood 3.6 mmol/L (3.5-5.5); Total Protein, Blood 6.6 g/dL (6.4-8.2)
[2024-01-23] MEDS ORDERED: Potassium Chloride 20 MEQ TabCR PO ONE (08:35)
== END 2024-01-23 09:37 | disposition home or self-care (01) ==
LOC: ER 06:25
PROVIDERS: Emergency Medicine
DX: I48.92 Unspecified atrial flutter (principal); Z88.8 Allergy status to other drugs, medicaments and biological substances; Z88.5 Allergy status to narcotic agent; Z88.1 Allergy status to other antibiotic agents; Z79.899 Other long term (current) drug therapy; Z79.84 Long term (current) use of oral hypoglycemic drugs; E66.01 Morbid (severe) obesity due to excess calories; E11.42 Type 2 diabetes mellitus with diabetic polyneuropathy; E11.22 Type 2 diabetes mellitus with diabetic chronic kidney disease; N18.9 Chronic kidney disease, unspecified; E03.9 Hypothyroidism, unspecified; M10.9 Gout, unspecified; I25.2 Old myocardial infarction; Z87.891 Personal history of nicotine dependence
CPT/HCPCS: 80053; 83735; 84484; 85025; 93005; 93010; A9270; J3475; J7030

== ENCOUNTER 2024-06-20 18:35 | Observation (INO) | payer OTHER ==
[~2024-06-20] VITALS: Ht 167.6 cm; Wt 110.7 kg
[2024-06-20] MEDS ORDERED: propofoL 20 ML IV SCH (19:40)
[2024-06-20 19:51] LABS: BASOPHILS ABSOLUTE AUTO 0.09 K/mm3 (0.00-0.23); BASOPHILS PERCENT AUTO 1 % (0-2); EOSINOPHILS ABSOLUTE AUTO 0.22 K/mm3 (0.00-0.68); EOSINOPHILS PERCENT AUTO 2 % (0-6); Hematocrit 43.6 % (33.0-51.0); Hemoglobin 15.6 g/dL (11.5-16.0); IMMATURE GRAN ABSOLUTE AUTO 0.23 K/mm3 (0.00-0.10); IMMATURE GRAN PERCENT AUTO 2 % (0-1); LYMPHOCYTES ABSOLUTE AUTO 2.46 K/mm3 (0.84-5.20); LYMPHOCYTES PERCENT AUTO 23 % (21-46); MONOCYTES ABSOLUTE AUTO 0.94 K/mm3 (0.16-1.47); MONOCYTES PERCENT AUTO 9 % (4-13); Mean Corpuscular HGB 33.4 pg (26.0-34.0); Mean Corpuscular HGB Conc 35.8 g/dL (31.5-36.5); Mean Corpuscular Volume 93 fL (80-100); Mean Platelet Volume 11.3 fL (9.1-12.4); NEUTROPHILS ABSOLUTE AUTO 6.72 K/mm3 (1.96-9.15); NEUTROPHILS PERCENT AUTO 63 % (41-73); Platelet Count 248 K/mm3 (150-400); RDW Coefficient Variation 12.4 % (11.7-14.2); RDW Standard Deviation 42.9 fL (35.1-46.3); Red Blood Cell Count 4.67 M/mm3 (3.80-5.20); White Blood Cell Count 10.66 K/mm3 (4.00-11.30)
[2024-06-20] MEDS ORDERED: Metoprolol Tartrate 1 MG/ML 5 ML VIAL IV ONE ×3 (20:00→20:45)
[2024-06-20] MEDS ORDERED: NS 1,000 ML IV SCH ×2 (20:00→22:35)
[2024-06-20] MEDS ORDERED: METOPROLOL TARTRATE IV SCH (20:20)
[2024-06-20 21:29] LABS: Bun/Creatinine Ratio 30.1 (12.0-20.0); Calcium, Blood 9.5 mg/dL (8.5-10.1); Creatinine, Blood 0.63 mg/dL (0.40-1.00); Magnesium, Blood 1.8 mg/dL (1.6-2.4); Potassium, Blood 4.4 mmol/L (3.5-5.5)
[2024-06-20] MEDS ORDERED: Ondansetron HCl 2 MG / ML 2ML Vial IV PRN (22:05)
[2024-06-20] MEDS ORDERED: Acetaminophen 325 MG TABLET PO PRN (22:05)
[2024-06-20] MEDS ORDERED: Metoprolol Tartrate 1 MG/ML 5 ML VIAL IV PRN (22:05)
[2024-06-20] MEDS ORDERED: FLU VACC TS2024-25(6MOS UP)/PF 45 MCG/0.5 ML SYRINGE IM SCH (22:10)
[2024-06-20 22:50] LABS: Thyroid Stimulating Hormone 3.99 uIU/mL (0.360-4.800)
[2024-06-20] MEDS ORDERED: NS 500 ML IV ONE (23:00)
[2024-06-20] MEDS ORDERED: Metoprolol Tartrate 25 MG Tab PO SCH ×2 (23:00)
[2024-06-21] MEDS ORDERED: HYDROCODONE-AC1 EA19 PO (03:32)
[2024-06-21] MEDS ORDERED: PANTOPRAZOLE SO40 M2 PO (03:38)
[2024-06-21] MEDS ORDERED: SEMGLEE (Y100 UNIT/2 SC (03:38)
[2024-06-21] MEDS ORDERED: Polyethylene Glycol 3350 17 gm PO ONE (03:55)
[2024-06-21 04:05] VITALS: BP 123/75
--- NOTE | 2024-06-21 04:57 | NUR ---
SHIFT SUMMARY ASSUMED CARE OF PT WHO WAS TRANSFERRED FROM ED AT APPROX 0130. PT A&O4, COOPERATIVE IN CARE AND ADMISSION. BP AND O2 STABLE WITH HR ELEVATED AT TIMES RANGING FROM 64 TO 120, NONSUSTAINING. PT PRESENTED WITH A CLOSED PARASTERNAL INCISION AND COLOSTOMY TO [facility]. MED REC COMPLETED W PT AND REQUESTED TO START MIRALAX FERNANDO. NOTIFIED , ORDERED RECIEVED. BED IN LOWEST POSITION AND CALL LIGHT WITHIN REACH
[2024-06-21 05:05] LABS: Hematocrit 41.4 % (33.0-51.0); Hemoglobin 14.8 g/dL (11.5-16.0); Mean Corpuscular HGB 33.7 pg (26.0-34.0); Mean Corpuscular HGB Conc 35.7 g/dL (31.5-36.5); Mean Corpuscular Volume 94 fL (80-100); Mean Platelet Volume 11.5 fL (9.1-12.4); Platelet Count 218 K/mm3 (150-400); RDW Coefficient Variation 12.5 % (11.7-14.2); RDW Standard Deviation 43.7 fL (35.1-46.3); Red Blood Cell Count 4.39 M/mm3 (3.80-5.20); White Blood Cell Count 8.74 K/mm3 (4.00-11.30)
[2024-06-21] MEDS ORDERED: Levothyroxine Sodium 0.125 MG Tab PO SCH (06:00)
[2024-06-21 06:02] LABS: Bun/Creatinine Ratio 24.9 (12.0-20.0); Creatinine, Blood 0.72 mg/dL (0.40-1.00); Potassium, Blood 3.9 mmol/L (3.5-5.5)
[2024-06-21] MEDS ORDERED: Insulin Human Lispro 100 Units/ML 3ML Syringe SC SCH (07:30)
[2024-06-21] MEDS ORDERED: dilTIAZem HCL 240 MG CAP.CD PO SCH (09:00)
[2024-06-21] MEDS ORDERED: Amiodarone HCl 200 MG Tab PO SCH (09:00)
[2024-06-21] MEDS ORDERED: Apixaban 5 MG Tab PO SCH (09:00)
[2024-06-21 09:10] VITALS: BP 120/77
[2024-06-21] MEDS ORDERED: Lisinopril 5 MG Tab PO SCH (09:40)
[2024-06-21] MEDS ORDERED: Spironolactone 25 MG Tab PO SCH (09:40)
--- NOTE | 2024-06-21 09:54 | NUR ---
"Spiritual Care Visit | Pt. Request Pt. is awake and sitting upon the side of her bed when she welcomes my visit. Pt. verbalized an inquiry about Chap. Mccray as he had previously worked with the Pts. Spouse. Facilitated a life review. Listened with empathy and interest. Pt. displayed evidence of trust, and was moved to tears when i prayed with her. Pt. verbalized gratitude for the spiritual care visit and requested I let chaplain Mccray know that I had visited her."
[2024-06-21 11:40] VITALS: BP 118/76
[2024-06-21] MEDS ORDERED: Regadenoson 0.4 MG/5 ML SYRINGE ONE (11:50)
[2024-06-21] MEDS ORDERED: Amiodarone HCl200 MG PO (13:38)
--- NOTE | 2024-06-21 13:42 | NUR ---
NURSING PCU DISCHARGE SUMMARY: Pt has done well t/o the a.m. Remained NSR 60's w/o cardiac events. Seen by PMD, ok'd for discharge home on current medication regimen. Pt denies any questions/needs, follow up appt scheduled for tomorrow morning. PIV dc'd w/cath intact, assist w/dressing. S/O will be providing transport home at approx 1400. Cont to monitor until discharge is complete.
[2024-06-21] MEDS ORDERED: Polyethylene Glycol 3350 17 gm PO SCH (21:00)
== END 2024-06-21 14:31 | disposition home or self-care (01) ==
LOC: ER 18:35 → ERHOLD 18:36 → PCU 06-21 01:27
PROVIDERS: Emergency Medicine; Nurse Practitioner Acute Care; ADMIT Internal Medicine
DX: I48.0 Paroxysmal atrial fibrillation (principal); E11.9 Type 2 diabetes mellitus without complications; D68.51 Activated protein C resistance; I25.2 Old myocardial infarction; G47.33 Obstructive sleep apnea (adult) (pediatric); E66.01 Morbid (severe) obesity due to excess calories; Z68.41 Body mass index [BMI] 40.0-44.9, adult; Z86.711 Personal history of pulmonary embolism; Z87.891 Personal history of nicotine dependence; Z79.890 Hormone replacement therapy; Z79.01 Long term (current) use of anticoagulants; Z79.899 Other long term (current) drug therapy; Z88.5 Allergy status to narcotic agent; Z88.1 Allergy status to other antibiotic agents; Z88.8 Allergy status to other drugs, medicaments and biological substances; Z79.84 Long term (current) use of oral hypoglycemic drugs
CPT/HCPCS: 36415; 80048; 82947; 83735; 84443; 85025; 85027; 93005; 93010; 94762; 96361; 96374; 99285-25; A9270; G0378; J2785; J7030; J7040

== ENCOUNTER → 2025-04-01 | Outpatient (CLI) | payer OTHER ==
[~2025-04-01] MED LIST changes: +Amiodarone HCl200 MG PO; +HYDROCODONE-AC1 EA19 PO; +PANTOPRAZOLE SO40 M2 PO; +SEMGLEE (Y100 UNIT/2 SC
[2025-04-01 19:09] LABS: Bacterial Vaginosis PCR Negative (NEGATIVE); Candida glabrata-krusei, PCR NOT DETECTED (NOT DETECT)
[2025-04-01 20:39] LABS: Candida Group, PCR DETECTED (NOT DETECT)
[2025-04-05 14:31] LABS: HSV SUBTYPE SOURCE VAGINAL
== END ==
LOC: LAB SHORT 17:52 → LAB 17:52
PROVIDERS: Physician Assistant
DX: N94.89 Other specified conditions associated with female genital organs and menstrual cycle (principal)
CPT/HCPCS: 81515; 87529

== ENCOUNTER 2025-08-07 17:39 | Emergency (ER) | payer OTHER ==
[~2025-08-07] VITALS: Ht 167.6 cm; Wt 113.4 kg
[2025-08-07 18:27] LABS: BASOPHILS ABSOLUTE AUTO 0.06 K/mm3 (0.00-0.23); BASOPHILS PERCENT AUTO 1 % (0-2); EOSINOPHILS ABSOLUTE AUTO 0.10 K/mm3 (0.00-0.68); EOSINOPHILS PERCENT AUTO 1 % (0-6); Hematocrit 43.2 % (33.0-51.0); Hemoglobin 15.8 g/dL (11.5-16.0); IMMATURE GRAN ABSOLUTE AUTO 0.09 K/mm3 (0.00-0.10); IMMATURE GRAN PERCENT AUTO 1 % (0-1); LYMPHOCYTES ABSOLUTE AUTO 1.70 K/mm3 (0.84-5.20); LYMPHOCYTES PERCENT AUTO 23 % (21-46); MONOCYTES ABSOLUTE AUTO 0.47 K/mm3 (0.16-1.47); MONOCYTES PERCENT AUTO 6 % (4-13); Mean Corpuscular HGB Conc 36.6 g/dL (31.5-36.5); Mean Corpuscular Volume 93 fL (80-100); NEUTROPHILS ABSOLUTE AUTO 5.05 K/mm3 (1.96-9.15); NEUTROPHILS PERCENT AUTO 68 % (41-73); NRBC ABSOLUTE 0.00 K/mm3 (0.00-0.02); NRBC Auto 0.0 /100 WBC (0.0-0.2); Platelet Count 166 K/mm3 (150-400); RDW Coefficient Variation 12.2 % (11.7-14.2); RDW Standard Deviation 41.4 fL (35.1-46.3)
[2025-08-07 19:10] LABS: Alanine Aminotransfer (ALT/SGP 53.0 U/L (12-78); Albumin, Blood 4.3 g/dL (3.4-5.0); Albumin/Globulin Ratio 1.2 (0.8-1.8); Anion Gap 12.0 mmol/L (3-11); Aspartate Aminotrans (AST/SGOT 35.0 U/L (12-37); Bilirubin, Total 0.5 mg/dL (0.1-1.0); Blood Urea Nitrogen 16.0 mg/dL (8-24); CO2, Blood 22.0 mmol/L (21-32); Calcium, Blood 9.8 mg/dL (8.5-10.1); Chloride, Blood 104.0 mmol/L (98-108); Creatinine, Blood 0.68 mg/dL (0.40-1.00); Globulin, Blood 3.5 g/dL (2.2-4.0); Glucose, Blood 353.0 mg/dL (70-99); Potassium, Blood 4.2 mmol/L (3.5-5.5); Sodium, Blood 134.0 mmol/L (136-145); Total Protein, Blood 7.8 g/dL (6.4-8.2)
[2025-08-07 19:59] VITALS: BP 166/102
== END 2025-08-07 21:50 | disposition home or self-care (01) ==
LOC: ER 17:39
PROVIDERS: Student in an Organized Health Care Education/Training Program
DX: K56.41 Fecal impaction (principal); E11.65 Type 2 diabetes mellitus with hyperglycemia; I48.91 Unspecified atrial fibrillation; K43.9 Ventral hernia without obstruction or gangrene; K57.90 Diverticulosis of intestine, part unspecified, without perforation or abscess without bleeding; N20.0 Calculus of kidney; K80.20 Calculus of gallbladder without cholecystitis without obstruction; G47.30 Sleep apnea, unspecified; D68.51 Activated protein C resistance; Z91.119 Patient's noncompliance with dietary regimen due to unspecified reason; Z87.891 Personal history of nicotine dependence; Z88.8 Allergy status to other drugs, medicaments and biological substances; Z88.5 Allergy status to narcotic agent; Z88.1 Allergy status to other antibiotic agents; Z79.84 Long term (current) use of oral hypoglycemic drugs; Z79.890 Hormone replacement therapy; Z79.01 Long term (current) use of anticoagulants; Z79.85 Long-term (current) use of injectable non-insulin antidiabetic drugs; Z79.4 Long term (current) use of insulin; Z79.899 Other long term (current) drug therapy
CPT/HCPCS: 74177; 80053; 85025; 99284-25; Q9967